=== PATIENT | female | born 1980 | race Caucasian/White ===

== ENCOUNTER 2017-11-05 11:11 | Emergency (ER) | payer SELFPAY ==
--- NOTE | 2017-11-05 13:33 | ER Document Report ---
ED GI/ - General Chief Complaint: Vaginal Discharge Stated Complaint: POSSIBLE YEAST INFECTION Time Seen by Provider: 11/05/17 12:34 Mode of Arrival: Ambulatory Information source: Patient Notes: 37-year-old female presents to ED for complaint of vaginal discharge for the past 7 days. She states she has a history of chronic yeast infections her last one was about a year ago. She states usually when she was in [place] they would give her Diflucan 2 times a week for 5 weeks. She states she just moved here in July and has not obtained a primary doctor as yet. She states she tried [id number] medication with no relief. She states she is allergic to sulfa latex and azithromycin. TRAVEL OUTSIDE OF THE U.S. IN LAST 30 DAYS: No - HPI Patient complains to provider of: Pelvic pain, Vaginal discharge, Vaginal pain Onset: Last week Timing/Duration: Persistent Quality of pain: Burning Severity at maximum: Moderate Severity in ED: Moderate Pain Level: 4 Associated symptoms: Vaginal discharge, Other - Pelvic pain Exacerbated by: Denies Relieved by: Denies Similar symptoms previously: Yes Recently seen / treated by doctor: No - Related Data Allergies/Adverse Reactions: latex Allergy (Verified 11/05/17 11:12) Sulfa (Sulfonamide Antibiotics) Allergy (Verified 11/05/17 11:12) Past Medical History - General Information source: Patient - Social History Smoking Status: Never Smoker Cigarette use (# per day): No Chew tobacco use (# tins/day): No Smoking Education Provided: No Frequency of alcohol use: None Drug Abuse: None Lives with: Parents Family History: Reviewed & Not Pertinent Patient has suicidal ideation: No Patient has homicidal ideation: No - Past Medical History Cardiac Medical History: Reports: None Pulmonary Medical History: Reports: None EENT Medical History: Reports: None Neurological Medical History: Reports: None Renal/ Medical History: Reports: Other - Endometriosis and chronic yeast infection Malignancy Medical History: Reports: None GI Medical History: Reports: None Musculoskeletal Medical History: Reports None Skin Medical History: Reports None Psychiatric Medical History: Reports: None Traumatic Medical History: Reports: None Infectious Medical History: Reports: None Past Surgical History: Reports: Hx Adenoidectomy, Hx Dilation and Curettage, Hx Oral Surgery - System teeth, Hx Tonsillectomy - Immunizations Immunizations up to date: Yes Review of Systems - Review of Systems Constitutional: No symptoms reported EENT: No symptoms reported Cardiovascular: No symptoms reported Respiratory: No symptoms reported Gastrointestinal: No symptoms reported Genitourinary: No symptoms reported Female Genitourinary: No symptoms reported, Vaginal discharge, Other - Vaginal pain states she has bumps on her labia but no bumps seen Musculoskeletal: No symptoms reported Skin: No symptoms reported Hematologic/Lymphatic: No symptoms reported Neurological/Psychological: No symptoms reported -: Yes All other systems reviewed and negative Physical Exam - Vital signs Vitals: Temp Pulse Resp BP Pulse Ox 97.3 F 79 18 121/75 99 11/05/17 11:43 11/05/17 11:43 11/05/17 11:43 11/05/17 11:43 11/05/17 11:43 Interpretation: Normal - General General appearance: Appears well, Alert - HEENT Head: Normocephalic, Atraumatic Eyes: Normal Pupils: PERRL - Respiratory Respiratory status: No respiratory distress Chest status: Nontender Breath sounds: Normal Chest palpation: Normal - Cardiovascular Rhythm: Regular Heart sounds: Normal auscultation Murmur: No - Abdominal Inspection: Normal Distension: No distension Bowel sounds: Normal Tenderness: Nontender Organomegaly: No organomegaly - Genitourinary External exam: Normal Speculum exam: Vaginal discharge Vaginal bleeding: None Bimanuel exam: Normal - Back Back: Normal, Nontender - Extremities General upper extremity: Normal inspection, Nontender, Normal color, Normal ROM , Normal temperature General lower extremity: Normal inspection, Nontender, Normal color, Normal ROM , Normal temperature, Normal weight bearing. No: Bethanie's sign - Neurological Neuro grossly intact: Yes Cognition: Normal Orientation: AAOx4 [place] Coma Scale Eye Opening: Spontaneous Kristen Coma Scale Verbal: Oriented Kristen Coma Scale Motor: Obeys Commands [place] Coma Scale Total: 15 Speech: Normal Motor strength normal: LUE, RUE, LLE, RLE Sensory: Normal - Psychological Associated symptoms: Normal affect, Normal mood - Skin Skin Temperature: Warm Skin Moisture: Dry Skin Color: Normal Course - Re-evaluation Re-evalutation: 11/05/17 20:38 She treated for bacterial vaginosis with Flagyl. Patient was discharged home. Patient was given a prescription for Flagyl. - Vital Signs Vital signs: Temp Pulse Resp BP Pulse Ox 98.2 F 87 18 129/82 H 97 11/05/17 15:11 11/05/17 15:11 11/05/17 11:43 11/05/17 15:11 11/05/17 15:11 Discharge - Discharge Clinical Impression: Bacterial vaginosis Condition: Stable Disposition: HOME, SELF-CARE Instructions: Family Physicians / Practices Additional Instructions: VAGINOSIS, BACTERIAL: Your exam shows you have bacterial vaginosis. This condition is due to an overgrowth of bacteria in the vagina. Symptoms may include vaginal itching or pain, a smelly discharge, and sometimes burning with urination. Normally this is not transmitted by sexual contact. Vaginosis can be treated with oral or topical antibiotics. Metronidazole ( Flagyl) pills are usually effective. Topical vaginal creams include Cleocin and Metro-Gel. You should avoid sexual contact until your symptoms are all better. Call the doctor if you develop pelvic pain, fever, or problems with urination, or if you don't improve as expected. METRONIDAZOLE: Metronidazole (Flagyl) has been prescribed. This medication is used to kill a type of bacteria called anaerobes, and protozoan parasites such as trichomonas and Giardia. Flagyl often causes a metallic taste in the mouth and mild nausea. Do not use alcohol in any form with Flagyl (including alcohol in medication elixirs). Flagyl interacts with alcohol to cause flushing, palpitations, headache, stomach cramps, and vomiting. Do not use Flagyl if you are taking Antabuse (disulfiram). Call the doctor at once if you develop rash, shortness of breath, itching, or lightheadedness. FOLLOW-UP CARE: If you have been referred to a physician for follow-up care, call the physician s office for an appointment as you were instructed or within the next two days. If you experience worsening or a significant change in your symptoms, notify the physician immediately or return to the Emergency Department at any time for re-evaluation. Prescriptions: Metronidazole [Flagyl 500 mg Tablet] 500 mg PO BID #14 tablet Referrals: [facility] [Provider Group] - Follow up as needed
[2017-11-05 13:50] LABS: T.VAGINALIS (WET MOUNT) NO TRICHOMONAS SEEN; WBCS (WET MOUNT) NO WBCS SEEN; YEAST (WET MOUNT) NO YEAST SEEN
[2017-11-05 13:51] LABS: BACTERIA (WET MOUNT) 3+ BACTERIA SEEN; EPITHELIALS (WET MOUNT) 3+ EPITHELIALS SEEN
[2017-11-05 13:56] LABS: APPEARANCE,URINE CLEAR; BILIRUBIN,URINE NEGATIVE (NEGATIVE); COLOR,URINE YELLOW; GLUCOSE, URINE NEGATIVE (NEGATIVE); KETONES,URINE NEGATIVE (NEGATIVE); LEUKOCYTE ESTERASE,URINE NEGATIVE (NEGATIVE); NITRITE,URINE NEGATIVE (NEGATIVE); PROTEIN,URINE NEGATIVE (NEGATIVE); URINE SPECIFIC GRAVITY 1.013; UROBILINOGEN,URINE NEGATIVE mg/dL (<2.0)
[2017-11-05] MEDS ORDERED: METRONIDAZOLE 500 MG TABLET PO ONE (14:58)
[2017-11-05 15:13] VITALS: BP 129/82
[2017-11-05 15:16] LABS: CHLAM PCR NOT DETECTED (NOT DETECT); GON PCR NOT DETECTED (NOT DETECT)
== END 2017-11-05 15:30 | disposition home or self-care (01) ==
LOC: ER 11:11
DX: N76.0 Acute vaginitis (principal); B96.89 Other specified bacterial agents as the cause of diseases classified elsewhere; Z88.2 Allergy status to sulfonamides; Z88.1 Allergy status to other antibiotic agents; Z91.040 Latex allergy status
CPT/HCPCS: 81001; 81025; 87210; 87491; 87591; 99283

== ENCOUNTER 2018-09-06 21:12 | Emergency (ER) | payer SELFPAY ==
[2018-09-06] MEDS ORDERED: NORMAL SALINE 1000 ML 1,000 ML IV ONE (23:04)
--- NOTE | 2018-09-06 23:38 | ER Document Report ---
Addendum entered and electronically signed by FLORENCIA GOMEZ MD 09/07/18 11:02: Discharge - Discharge Clinical Impression: Prolonged Q-T interval on ECG, Overuse of medication, History of substance abuse Overdose Qualifiers: Encounter type: initial encounter Injury intent: undetermined intent Qualified Code(s): T50.904A - Poisoning by unspecified drugs, medicaments and biological substances, undetermined, initial encounter Condition: Stable Disposition: HOME, SELF-CARE Additional Instructions: You have been evaluated by both medical and behavioral health providers while in the emergency department. You have been cleared from both acute medical and psychiatric services. You and family reported you have an addiction problem. You denied current suicidal ideation or this being an attempt. You are being linked with [facility] for voluntary detoxification/recovery treatment. Overdose / Ingestion You have taken more medication than you should have. After your evaluation and care, it is felt that your overdose is not likely to be harmful or of any significant consequences to you and you are being discharged. In the future, you should be careful not to take more medications than what is prescribed for you. Although your overdose does not seem to be of any danger to you at this time, if you develop any unusual or unexpected symptoms after your discharge, you should return to the Emergency Department immediately for re-evaluation. Overuse of prescribed medications (anxiolytic, benzodiazpeine) These are medications such as Valium, Ativan, Xanax and Klonopin. They are considered controlled substance and very addictive. Over use of them impairs insight, judgment and impulse control. Often people are unaware of their actions. Withdrawal from these medications can cause seizures and other physiological issues. FOLLOW-UP CARE: You are being linked to [facility] for voluntary detoxification/recovery/treatment services for substance abuse. They will meet you in the emergency room lobby. If you experience worsening or a significant change in your symptoms, notify the physician immediately, utilize mobile crisis or return to the Emergency Department at any time for re-evaluation. Referrals: [facility] [Outside] - 09/07/18 Addendum entered and electronically signed by ETHEL MONK LPC 09/07/18 10:34: Discharge - Discharge Clinical Impression: Prolonged Q-T interval on ECG, Overuse of medication, History of substance abuse Overdose Qualifiers: Encounter type: initial encounter Injury intent: undetermined intent Qualified Code(s): T50.904A - Poisoning by unspecified drugs, medicaments and biological substances, undetermined, initial encounter Condition: Stable Disposition: HOME, SELF-CARE Additional Instructions: You have been evaluated by both medical and behavioral health providers while in the emergency department. You have been cleared from both acute medical and psychiatric services. You and family reported you have an addiction problem. You denied current suicidal ideation or this being an attempt. You are being linked with [facility] for voluntary detoxification/recovery treatment. Overdose / Ingestion You have taken more medication than you should have. After your evaluation and care, it is felt that your overdose is not likely to be harmful or of any significant consequences to you and you are being discharged. In the future, you should be careful not to take more medications than what is prescribed for you. Although your overdose does not seem to be of any danger to you at this time, if you develop any unusual or unexpected symptoms after your discharge, you should return to the Emergency Department immediately for re-evaluation. Overuse of prescribed medications (anxiolytic, benzodiazpeine) These are medications such as Valium, Ativan, Xanax and Klonopin. They are considered controlled substance and very addictive. Over use of them impairs insight, judgment and impulse control. Often people are unaware of their actio ns. Withdrawal from these medications can cause seizures and other physiological issues. FOLLOW-UP CARE: You are being linked to [facility] for voluntary detoxification/recovery/treatment services for substance abuse. They will meet you in the emergency room lobby. If you experience worsening or a significant change in your symptoms, notify the physician immediately, utilize mobile crisis or return to the Emergency Department at any time for re-evaluation. Referrals: [facility] [Outside] - 09/07/18 Addendum entered and electronically signed by KAT LANGFORD DO 09/07/18 06:28: Course - Re-evaluation Re-evalutation: 09/07/18 06:27 On reevaluation patient is awake alert answering all questions appropriately. I informed her that we have mental health hiv counselor this morning being that the intent of her overdose is still not clear being that her story is low bit off with her try to take much medicines asleep at 2 PM in the afternoon. Patient is agreeable to seeing mental health. Her repeat EKG shows a QTc interval has stabilized and is downtrending. Current EKG done at 6:16 AM shows sinus rhythm with rate of 90 bpm. [place] interval QRS duration are within normal range. QTc interval is stabilized. Dictation of this chart was performed using voice recognition software; therefore, there may be some unintended grammatical errors. 09/07/18 06:28 - Vital Signs Vital signs: Temp Pulse Resp BP Pulse Ox 98.0 F 88 27 H 109/77 91 L 09/07/18 06:00 09/06/18 21:31 09/07/18 06:01 09/07/18 06:00 09/07/18 06:01 - Laboratory Result Diagrams: 09/06/18 23:31 09/06/18 23:31 Laboratory results interpreted by me: 09/06/18 09/06/18 23:31 23:31 WBC 14.5 H Seg Neutrophils % 81.1 H Absolute Neutrophils 11.7 H Sodium 136.8 L Glucose 119 H Alkaline Phosphatase 131 H Salicylates < 1.0 L Acetaminophen < 10 L Original Note: ED General - General Chief Complaint: Overdose Stated Complaint: POSSIBLE OVERDOSE Time Seen by Provider: 09/06/18 22:44 Mode of Arrival: Medic Information source: Patient TRAVEL OUTSIDE OF THE [place] IN LAST 30 DAYS: No - HPI Notes: Patient is a 37-year-old female history of hypertension, previous overdoses, fibromyalgia presents to the emergency department with report that she took an overdose of her doxepin, approximately 16 tablets at 1400 today by report. The patient states she was just trying to go to sleep by taking the overdose and was not trying to commit suicide. The patient denies any homicidal ideation or hallucinations. The patient admits to previous overdoses similarly, stating that she is "just an addict." The patient reports having some difficulty at home where she lives with her parents. The patient states she is set up to see her counselor tomorrow. Patient was picked up by EMS in an altered state with some confusion and somnolence. Patient denies any chest pain, shortness of breath, nausea, vomiting, fever or chills. She denies any other overdose besides her doxepin. The patient states that she has been taking her other medications which include Cymbalta and atenolol and amlodipine regularly. - Related Data Allergies/Adverse Reactions: latex Allergy (Verified 11/05/17 11:12) Sulfa (Sulfonamide Antibiotics) Allergy (Verified 11/05/17 11:12) Past Medical History - General Information source: Patient - Social History Smoking Status: Unknown if Ever Smoked Frequency of alcohol use: None Drug Abuse: Prescription drugs Lives with: Family Family History: Reviewed & Not Pertinent Renal/ Medical History: Denies: Hx Peritoneal Dialysis Past Surgical History: Reports: Hx Adenoidectomy, Hx Dilation and Curettage, Hx Oral Surgery - System teeth, Hx Tonsillectomy - Immunizations Immunizations up to date: Yes Review of Systems - Review of Systems -: Yes ROS unobtainable due to patient's medical condition -: Yes All other systems reviewed and negative Physical Exam - Vital signs Vitals: Temp Pulse Resp BP Pulse Ox 97.5 F 88 20 111/79 94 09/06/18 21:31 09/06/18 21:31 09/06/18 21:31 09/06/18 21:31 09/06/18 21:31 - Notes Notes: PHYSICAL EXAMINATION: GENERAL: Well-appearing, well-nourished and in no acute distress. HEAD: Atraumatic, normocephalic. EYES: Pupils equal round and reactive to light, extraocular movements intact, conjunctiva are normal. ENT: Nares patent, oropharynx clear without exudates. Somewhat dry mucous membranes. NECK: Normal range of motion, supple without lymphadenopathy LUNGS: Breath sounds clear to auscultation bilaterally and equal. No wheezes rales or rhonchi. HEART: Regular rate and rhythm without murmurs ABDOMEN: Soft, nontender, nondistended abdomen. No guarding, no rebound. No masses appreciated. Female : deferred Musculoskeletal: Normal range of motion, no pitting or edema. No cyanosis. NEUROLOGICAL: Cranial nerves grossly intact. Normal speech, normal gait. Normal sensory, motor exams PSYCH: somewhat flat affect. Patient denies suicidal or homicidal ideation, but offers explanation of her overdose that she was trying to sleep and is addicted to her medications. SKIN: Warm, Dry, normal turgor, no rashes or lesions noted. Course - Re-evaluation Re-evalutation: 09/07/18 03:48 Patient was given normal saline bolus and placed upon teletypesetter monitor where there was no ectopy or significant tachycardia. Initial EKG did show mild QT prolongation of 400 with a QTC of 487, performed at 2238. Discussion was undertaken with poison control related to these findings. Repeat EKG on 09/07/2018 at 0 221 as interpreted by me showed normal sinus rhythm heart rate of 85 with no obvious evidence for acute IL or ischemia. The QT increased to 412 and a QTC of 490. Patient still had pulse rates in the 80s and was more clear on discussion, and somewhat more alert. Discussion again was undertaken with poison control related to these findings. They advised potassium and magnesium replacement, with repeat EKG in 4 hours. IV potassium and magnesium were written. Attempt was made to call the patient's family at home but there was no answer. It is notable that the family has not shown up to see the patient since she has been here. The patient will need psychiatric evaluation and clearance after her medical clearance. - Vital Signs Vital signs: Temp Pulse Resp BP Pulse Ox 97.5 F 88 20 111/79 94 09/06/18 21:31 09/06/18 21:31 09/06/18 21:31 09/06/18 21:31 09/06/18 21:31 - Laboratory Result Diagrams: 09/06/18 23:31 09/06/18 23:31 Laboratory results interpreted by me: 09/06/18 09/06/18 23:31 23:31 WBC 14.5 H Seg Neutrophils % 81.1 H Absolute Neutrophils 11.7 H Sodium 136.8 L Glucose 119 H Alkaline Phosphatase 131 H Salicylates < 1.0 L Acetaminophen < 10 L - EKG Interpretation by Md EKG shows normal: Sinus rhythm Additional EKG results interpreted by me: 09/07/18 03:51 2238 as interpreted by wa showed normal sinus rhythm heart rate of 89. There is no gross evidence for acute IL or ischemia noted. Patient had QT of 400 and a QTC of 487. Discharge - Discharge Clinical Impression: Prolonged Q-T interval on ECG Overdose Qualifiers: Encounter type: initial encounter Injury intent: undetermined intent Qualified Code(s): T50.904A - Poisoning by unspecified drugs, medicaments and biological substances, undetermined, initial encounter Disposition: PSYCH HOSP/UNIT
[2018-09-06 23:46] LABS: ABSOLUTE BASOPHILS # (AUTO) 0.1 10^3/uL (0.0-0.2); ABSOLUTE EOSINOPHILS # (AUTO) 0.2 10^3/uL (0.0-0.6); ABSOLUTE LYMPHOCYTES (AUTO) 1.9 10^3/uL (0.5-4.7); ABSOLUTE MONOCYTES (AUTO) 0.6 10^3/uL (0.1-1.4); ABSOLUTE NEUT (AUTO) 11.7 10^3/uL (1.7-8.2); BASOPHILS % (AUTO) 0.4 % (0-2); EOSINOPHILS % (AUTO) 1.1 % (0-6); HEMATOCRIT 38.8 % (36.0-47.0); HEMOGLOBIN 12.9 g/dL (12.0-15.5); LYMPHOCYTES % (AUTO) 13.4 % (13-45); MEAN CORPUSCULAR HEMOGLOBIN 27.6 pg (27.0-33.4); MEAN CORPUSCULAR HGB CONC 33.3 g/dL (32.0-36.0); MEAN CORPUSCULAR VOLUME 83 fl (80-97); PLATELET COUNT 342 10^3/uL (150-450); RED BLOOD COUNT 4.68 10^6/uL (3.72-5.28); RED CELL DISTRIBUTION WIDTH 13.2 % (11.5-14.0); SEGMENTED NEUTROPHILS % (AUTO) 81.1 % (42-78); TOTAL CELLS COUNTED % (AUTO) 100 %; WHITE BLOOD COUNT 14.5 10^3/uL (4.0-10.5)
[2018-09-07 00:05] LABS: ALANINE AMINOTRANSFERASE 20 U/L (9-52); ALBUMIN 3.9 g/dL (3.5-5.0); ALKALINE PHOSPHATASE 131 U/L (38-126); ANION GAP 11 (5-19); ASPARTATE AMINO TRANSFERASE 19 U/L (14-36); BILIRUBIN,DIRECT 0.2 mg/dL (0.0-0.4); BILIRUBIN,TOTAL 0.3 mg/dL (0.2-1.3); BLOOD UREA NITROGEN 13 mg/dL (7-20); CALCIUM 9.3 mg/dL (8.4-10.2); CARBON DIOXIDE 23 mmol/L (22-30); CHLORIDE 103 mmol/L (98-107); GLUCOSE 119 mg/dL (75-110); SODIUM 136.8 mmol/L (137-145); TOTAL PROTEIN 6.6 g/dL (6.3-8.2)
[2018-09-07 00:06] LABS: ACETAMINOPHEN < 10 ug/mL (10-30); ALCOHOL < 10 mg/dL (NONE DETECTED); POTASSIUM 3.7 mmol/L (3.6-5.0); SALICYLATE < 1.0 mg/dL (2.0-20.0)
[2018-09-07] MEDS ORDERED: POTASSI CL 40 MEQ/D5-1/2NS 1L 40 MEQ/1,000 ML RTUINJ IV ONE (03:13)
[2018-09-07] MEDS: MAGNESIUM SULFATE/D5W 1 GM/100 ML RTUPB IV SCH ×2 (03:53→04:26)
[2018-09-07 08:46] LABS: APPEARANCE,URINE CLEAR; BILIRUBIN,URINE NEGATIVE (NEGATIVE); COLOR,URINE STRAW; GLUCOSE, URINE NEGATIVE (NEGATIVE); KETONES,URINE NEGATIVE (NEGATIVE); LEUKOCYTE ESTERASE,URINE NEGATIVE (NEGATIVE); NITRITE,URINE NEGATIVE (NEGATIVE); PROTEIN,URINE NEGATIVE (NEGATIVE); URINE SPECIFIC GRAVITY 1.012; UROBILINOGEN,URINE NEGATIVE mg/dL (<2.0)
[2018-09-07 08:48] LABS: URINE AMPHETAMINES SCREEN NEGATIVE; URINE BARBITURATES SCREEN NEGATIVE; URINE BENZODIAZEPINES SCREEN UNCONFIRMED POSITIVE; URINE COCAINE SCREEN NEGATIVE; URINE MARIJUANA (THC) SCREEN UNCONFIRMED POSITIVE; URINE METHADONE SCREEN NEGATIVE; URINE PHENCYCLIDINE SCREEN NEGATIVE
--- NOTE | 2018-09-07 10:02 | ER Document Report ---
Doctor's Note Notes: 09/07/18 10:01 Rounds: Chart reviewed and patient interviewed. Patient is awake and alert. Says that she took 16 of her own doxepin's because she wanted to get some sleep. Denies having taken these medicines for suicidal intent. Lab studies showed a WBC of 14,000 for unknown reason. No obvious infectious sites. Drug screen was positive for marijuana and benzos. Patient says she has fibromyalgia and chronic back pain. Signs are all essentially normal. Patient appears to be medically stable for transfer or discharge. Deyvi Gary MD
--- NOTE | 2018-09-07 10:18 | PSYCHOLOGICAL NOTE ---
Psych Note - Psych Note Date seen by psych provider: 09/07/18 Time seen by psych provider: 07:59 - Chart review at 0759. Evaluation from 0838- 0843. Collateral from mother at 1010. Psych Note: Presenting Problem: AMS, EMS brought patient to ED after family found her on the living room floor, patient admitted to medical staff she took 16 of her prescribed Doxepin at 1400 yesterday to sleep/she has been adamant it was not a SI attempt. Today patient reported her "memory was touch and go." She said "I remember sitting on the couch with my parents watching TV, I kept falling asleep and they kept waking me up, i guess I finally tried to go upstairs and must have fallen." She denied current SI and stated if this was an SI attempt she would be honest. She reported she takes 3 Doxepin scheduled and did not seem to understand how taking 16 just to sleep would suggest they are ineffective. She reported her and her parents moved to [place] from [place] 6 months ago after father retired and this is where he wanted to be. She noted in [place] she saw an EMDR therapist for 3-4 years. She identified she has medication management with Dr. Avery and therapy with Candace at [facility]. She stated she had a therapy appointment today at [facility] at 1000 but would reschedule. Medications include: Cymbalta and Doxepin along with BP medications. She denied previous MH Hospitalizations. UDS positive for Benzodiazepines and Cannabis but she did not mention any use of drugs. Patient was alert and oriented x5, had linear thinking and was able to have dialogue conversation. Spoke to mother, Priscilla ([phone]), and obtained contact information from patient. She stated patient had an issue with heroin, got off it and then started overusing her prescribed medications. She mentioned patient going through her Valium and doctor shopping. Mother stated "this is not the first time I have found her incoherent." She stated patient took her (mother's) Thorazine and Flexeril yesterday. She identified in January 2018 patient informed her she tried to OD on pills two back to back days. Mother stated patient needed detox and to stop abusing her medications, and detox was the stipulation or else patient could not return home. Patient made aware and with some persistence she agreed to meet [facility] in the ED Lobby for "forced detox because of parents" and seeking how to obtain independent living. [facility] team assisted patient in phone call to [facility]. [facility] came to meet her in the ED lobby. 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 She denied SI/HI and no observed psychosis. patient alert and oriented x5, with linear thinking and able to be engaged. She was linked to [facility], T[facility]on, met her in the ED Lobby for detox that parents wanted and this clinician recommended, as well as to obtain information about independent living. Mother included in plan of care and made aware patient was meeting [facility], that it was patient choice to follow through with voluntary detox, that patient did nit think she needed it but was willing to meet and get information and that she requested information about independent living. Consulted with Dr. Forde regarding the management and care of patient. ED Physician in agreement with recommendations.
--- NOTE | 2018-09-07 11:24 | EKG REPORT ---
SEVERITY:- BORDERLINE ECG - SINUS RHYTHM INFERIOR Q WAVES, PROBABLY NORMAL VARIATION BORDERLINE T WAVE ABNORMALITIES : Confirmed by: Cara Moody MD 07-Sep-2018 11:22:46
--- NOTE | 2018-09-07 11:24 | EKG REPORT ---
SEVERITY:- ABNORMAL ECG - SINUS RHYTHM INFERIOR Q WAVES, PROBABLY NORMAL VARIATION BORDERLINE T ABNORMALITIES, ANTERIOR LEADS BORDERLINE PROLONGED QT INTERVAL : Confirmed by: Cara Moody MD 07-Sep-2018 11:22:49
--- NOTE | 2018-09-07 11:24 | EKG REPORT ---
SEVERITY:- BORDERLINE ECG - SINUS RHYTHM BORDERLINE PROLONGED QT INTERVAL : Confirmed by: Cara Moody MD 07-Sep-2018 11:23:02
[2018-09-07 11:28] VITALS: BP 132/96
== END 2018-09-07 11:55 | disposition home or self-care (01) ==
LOC: ER 21:12
DX: T43.014A Poisoning by tricyclic antidepressants, undetermined, initial encounter (principal); R41.0 Disorientation, unspecified; R40.0 Somnolence; Y92.009 Unspecified place in unspecified non-institutional (private) residence as the place of occurrence of the external cause; I45.81 Long QT syndrome; I10 Essential (primary) hypertension; Z79.899 Other long term (current) drug therapy; Z91.040 Latex allergy status; Z88.2 Allergy status to sulfonamides
CPT/HCPCS: 93005 ×2; 99285; 96361; 96365; 96366; 96367; 36415; 80307 ×4; 83735; 84703; 85025; 80053; 81001; 93010 ×2; J3480; J3475; J7030

== ENCOUNTER 2018-12-29 08:11 | Emergency (ER) | payer SELFPAY ==
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
[2018-12-29 09:36] LABS: ABSOLUTE BASOPHILS # (AUTO) 0.1 10^3/uL (0.0-0.2); ABSOLUTE LYMPHOCYTES (AUTO) 2.3 10^3/uL (0.5-4.7); ABSOLUTE MONOCYTES (AUTO) 0.7 10^3/uL (0.1-1.4); ABSOLUTE NEUT (AUTO) 10.3 10^3/uL (1.7-8.2); BASOPHILS % (AUTO) 0.7 % (0-2); EOSINOPHILS % (AUTO) 0.2 % (0-6); HEMATOCRIT 44.9 % (36.0-47.0); HEMOGLOBIN 14.8 g/dL (12.0-15.5); LYMPHOCYTES % (AUTO) 16.9 % (13-45); MEAN CORPUSCULAR HEMOGLOBIN 27.1 pg (27.0-33.4); MEAN CORPUSCULAR HGB CONC 32.9 g/dL (32.0-36.0); MEAN CORPUSCULAR VOLUME 82 fl (80-97); MONOCYTES % (AUTO) 5.2 % (3-13); PLATELET COUNT 393 10^3/uL (150-450); RED BLOOD COUNT 5.45 10^6/uL (3.72-5.28); RED CELL DISTRIBUTION WIDTH 14.5 % (11.5-14.0); TOTAL CELLS COUNTED % (AUTO) 100 %; WHITE BLOOD COUNT 13.3 10^3/uL (4.0-10.5)
[2018-12-29 09:42] LABS: APPEARANCE,URINE CLOUDY; BILIRUBIN,URINE NEGATIVE (NEGATIVE); COLOR,URINE YELLOW; GLUCOSE, URINE NEGATIVE (NEGATIVE); KETONES,URINE 80 mg/dL (NEGATIVE); LEUKOCYTE ESTERASE,URINE NEGATIVE (NEGATIVE); NITRITE,URINE NEGATIVE (NEGATIVE); PROTEIN,URINE NEGATIVE (NEGATIVE); URINE SPECIFIC GRAVITY 1.023; UROBILINOGEN,URINE NEGATIVE mg/dL (<2.0)
[2018-12-29 09:52] LABS: URINE AMPHETAMINES SCREEN NEGATIVE; URINE BARBITURATES SCREEN NEGATIVE; URINE BENZODIAZEPINES SCREEN NEGATIVE; URINE COCAINE SCREEN NEGATIVE; URINE MARIJUANA (THC) SCREEN UNCONFIRMED POSITIVE; URINE METHADONE SCREEN NEGATIVE; URINE PHENCYCLIDINE SCREEN NEGATIVE
[2018-12-29 10:05] LABS: ACETAMINOPHEN < 10 ug/mL (10-30); ALBUMIN 4.6 g/dL (3.5-5.0); ALCOHOL < 10 mg/dL (NONE DETECTED); ALKALINE PHOSPHATASE 120 U/L (38-126); ANION GAP 15 (5-19); ASPARTATE AMINO TRANSFERASE 24 U/L (14-36); BILIRUBIN,DIRECT 0.1 mg/dL (0.0-0.4); BILIRUBIN,TOTAL 0.5 mg/dL (0.2-1.3); BLOOD UREA NITROGEN 8 mg/dL (7-20); CALCIUM 9.9 mg/dL (8.4-10.2); CARBON DIOXIDE 20 mmol/L (22-30); CHLORIDE 104 mmol/L (98-107); GLUCOSE 106 mg/dL (75-110); POTASSIUM 4.2 mmol/L (3.6-5.0); SALICYLATE < 1.0 mg/dL (2.0-20.0); TOTAL PROTEIN 7.7 g/dL (6.3-8.2)
[2018-12-29 12:31] VITALS: BP 149/100
--- NOTE | 2018-12-29 12:51 | EKG REPORT ---
SEVERITY:- NORMAL ECG - SINUS RHYTHM : Confirmed by: Dat Jaeger MD 29-Dec-2018 12:51:04
== END 2018-12-29 13:00 | disposition home or self-care (01) ==
LOC: ER 08:11
DX: R45.851 Suicidal ideations (principal); F39 Unspecified mood [affective] disorder; I10 Essential (primary) hypertension; Z91.14 Patient's other noncompliance with medication regimen; Z91.040 Latex allergy status; Z88.2 Allergy status to sulfonamides
CPT/HCPCS: 36415; 80053; 80307; 81001; 85025; 93005; 93010; 99285

== ENCOUNTER → 2019-09-13 | Outpatient (CLI) | payer OTHER ==
[2019-09-13 12:12] LABS: ALBUMIN 4.4 g/dL (3.5-5.0); ALKALINE PHOSPHATASE 99 U/L (38-126); ANION GAP 5 (5-19); ASPARTATE AMINO TRANSFERASE 23 U/L (14-36); BILIRUBIN,TOTAL 0.4 mg/dL (0.2-1.3); BLOOD UREA NITROGEN 8 mg/dL (7-20); CALCIUM 9.6 mg/dL (8.4-10.2); CARBON DIOXIDE 26 mmol/L (22-30); CHLORIDE 106 mmol/L (98-107); GLUCOSE 97 mg/dL (75-110); POTASSIUM 4.5 mmol/L (3.6-5.0); TOTAL PROTEIN 7.3 g/dL (6.3-8.2)
== END ==
LOC: CCC 10:55
PROVIDERS: ATTEND Family Medicine
DX: Z00.00 Encounter for general adult medical examination without abnormal findings (principal)
CPT/HCPCS: 36415; 80053; 83036